=== PATIENT | male | born 1970 | race Caucasian/White ===

== ENCOUNTER → 2021-04-28 00:39 | Outpatient (CLI) | payer BC, SELFPAY ==
[2021-04-28 21:01] LABS: SARS-CoV-2 RNA PCR Negative
== END ==
PROVIDERS: PCP Internal Medicine; Visit Provider Internal Medicine Gastroenterology
DX: Z01.812 Encounter for preprocedural laboratory examination (principal); Z20.828 Contact with and (suspected) exposure to other viral communicable diseases
CPT/HCPCS: C9803; U0003; U0005

== ENCOUNTER 2021-05-01 01:06 | Day surgery (SDC) | payer BC, SELFPAY ==
[2021-04-24 08:49] VITALS: BMI 24.4
--- NOTE | 2021-05-01 07:05 | P.PNAN_ITS ---
Anes - Initial Pre Proc Eval Procedure: Operation Date: 05/01/21 08:30 Proposed Procedures p Screening Colonoscopy - Brandan Iyer MD Date/Time: 05/01/21 07:05 Surgeon: Brandan Iyer MD Pre Op Diagnosis: neoplasm screening Z12.11 Patient Data Age: 50 Gender: M Height: 1.85 m Weight: 84.09 kg Allergies Allergy/AdvReac Type Severity Reaction Status Date / Time No Known Allergies Allergy Verified 05/01/21 07:14 Home Medications Medication Instructions Recorded Confirmed Type No Home Medications 04/24/21 05/01/21 History Patient hx anesthesia problems: none Family hx anesthesia problems: none [facility] Surgical History Surgical History (Updated 04/27/21 @ 12:23 by Santos Contreras DO) History of ankle surgery Social History Social History Smoking status: Former smoker Tobacco type: cigarettes Alcohol intake: current Alcohol use details: socially Substance use: never Substance use type: does not use Living arrangements: with family Spiritual care concerns: No Anes - Eval Final PreProcedure Day of Procedure 05/01/21 07:05 Patient weight: normal Heart: regular rate and rhythm Lungs: clear to auscultation and normal air movement Airway: Mallampati scale class II Neurological: alert and oriented Last oral intake: >/= 8 hours ASA classification: II Emergent: no Anesthetic plan: proceed Anesthesia type and monitoring: general GIVS and standard monitoring Informed Consent: The patient's anesthetic plan and its attendant risks and benefits were discussed with the patient/family/POA. Questions were solicited and answers provided to the satisfaction of the patient/family/POA.
[2021-05-01 07:14] VITALS: BP 140/81; PULSE 62; RESP 17; TEMP 36.4; O2SAT 96; BMI 24.0
[2021-05-01] MEDS: LACTATED RINGERS 1,000 ML 150 ML IV CONT ×2 (07:17→08:37)
--- NOTE | 2021-05-01 07:56 | WPDGICN ---
Assessment and Plan Assessment and plan (1) Encounter for screening colonoscopy: Code(s): Z12.11 - Encounter for screening for malignant neoplasm of colon Status: Acute Assessment and Plan: Patient presents for screening colonoscopy. Appears to be at average risk for colon polyps. GI Consult Note Consult date/time: 05/01/21 07:56 HPI: Jermaine Rinaldi is a 50 year old male Presents for screening colonoscopy. Patient reports his current weight appetite bowel movements are normal. He denies abdominal pain. He has had no bleeding. Family history is noncontributory. Screening colonoscopy to be performed later today. Review of Systems Review of Systems: All systems reviewed & are unremarkable except as noted in HPI and below [facility] Surgical History Surgical History (Updated 04/27/21 @ 12:23 by Santso Contreras DO) History of ankle surgery Social History Social History Smoking status: Former smoker Tobacco type: cigarettes Alcohol intake: current Alcohol use details: socially Substance use: never Substance use type: does not use Living arrangements: with family Spiritual care concerns: No Meds Home Medications and Allergies Home Medications Medication Instructions Recorded Confirmed Type No Home Medications 04/24/21 05/01/21 History Allergies Allergy/AdvReac Type Severity Reaction Status Date / Time No Known Allergies Allergy Verified 05/01/21 07:14 Vital Signs Vital Signs - 24 hr 05/01/21 07:14 Temperature 97.5 F L Pulse Rate 62 Respiratory Rate 17 Blood Pressure 140/81 Pulse Oximetry 96 Exam Narrative: Physical exam reveals patient be alert. Vital signs are stable. HEENT exam is unremarkable. Patient is anicteric. Lungs are clear to auscultation and percussion. Heart is without murmur or extra sounds. Abdominal exam bowel sounds are present soft nontender with no organomegaly. Digital external rectal exam is normal.
[2021-05-01 08:53] VITALS: BP 119/73; PULSE 92; RESP 17; O2SAT 98
[2021-05-01 09:03] VITALS: BP 116/72; PULSE 64; RESP 17; O2SAT 100
[2021-05-01 09:13] VITALS: BP 107/68; PULSE 60; RESP 17; O2SAT 100
== END 2021-05-01 09:23 | disposition home or self-care (01) ==
PROVIDERS: PCP Internal Medicine; Visit Provider Internal Medicine Gastroenterology
PROC: 0DJD8ZZ Inspection of Lower Intestinal Tract, Via Natural or Artificial Opening Endoscopic (ICD-10-PCS; CPT 45378; principal; 2021-05-01 08:30)
DX: Z12.11 Encounter for screening for malignant neoplasm of colon (principal); K57.30 Diverticulosis of large intestine without perforation or abscess without bleeding; K64.8 Other hemorrhoids; Z87.891 Personal history of nicotine dependence
CPT/HCPCS: 45378; J2001; J2704; J7120